=== PATIENT | female | born 1980 | race Caucasian/White ===

== ENCOUNTER 2024-01-31 15:05 | Emergency (ER) | payer OTHER, SELFPAY ==
[2024-01-31 15:08] VITALS: BP 133/91
[2024-01-31 15:29] LABS: % Basophils 0.2 % (0-2); % Immature Granulocytes 0.1 % (0-0.5); % Lymphocytes 18.6 % (20.5-51.1); % Monocytes 4.4 % (1.7-9.3); % Neutrophils 75.7 % (42.2-75.2); Absolute Eosinophils 0.1 10^3/uL (0-0.7); Absolute Lymphocytes 1.5 10^3/uL (1.2-3.4); Absolute Monocytes 0.4 10^3/uL (0.1-0.6); Absolute Neutrophils 6.1 10^3/uL (1.4-6.5); Mean Corp Hgb Conc. 35.1 g/dL (33.0-37.0); Mean Corpuscular Hgb 27.5 pg (27.0-31.0); Mean Corpuscular Volume 78.2 fL (81.0-99.0); Mean Platelet Volume 9.5 fL (7.4-10.4); Nucleated Red Blood Cells % 0 %; Platelet Count 269 10^3/uL (130-400); Red Blood Cell Count 4.73 10^6/uL (4.20-5.40); Red Cell Dist. Width 13.1 % (11.5-14.5)
[2024-01-31 15:45] LABS: ALT (SGPT) 18 U/L (0-35); AST (SGOT) 25 U/L (14-36); Alkaline Phosphatase 72 U/L (38-126); Blood Urea Nitrogen 10 mg/dl (7-17); Carbon Dioxide 25 mmol/L (22-30); Chloride 104 mmol/L (98-107); Glucose 126 mg/dl (70-99); Potassium 4.3 mmol/L (3.5-5.1); Sodium 141 mmol/L (135-145); Total Bilirubin 0.7 mg/dl (0.2-1.3); Total Protein 7.7 g/dl (6.3-8.2); eGFR > 60.00
[2024-01-31 15:50] LABS: Troponin I < 0.012 ng/ml
--- NOTE | 2024-01-31 17:15 | ED.GENMED ---
History of Present Illness
General
Chief Complaint: Eye Problems
Source: patient
Time Seen by Provider: 01/31/24 17:02
History of Present Illness
History of Present Illness:
43yoF with no significant past medical history presenting with her for evaluation of visual disturbance. Patient was in bed yesterday evening and was scrolling on her cell phone. She got up to use the bathroom and she noticed that she had a
complete loss of vision in her right eye. This lasted about a minute before resolving. Patient was seen by her eye doctor today who performed a dilated eye exam. Eye exam was normal and she was sent to the ED for concern for amaurosis fugax. Patient
is asymptomatic currently. She denies any headache, eye pain, dizziness, weakness, difficulty ambulating, chest pain.
Phy Exam
General Physical Exam
General Presentation: well appearing
General age: appears stated age
General Skin: warm and dry
General Habitus: normal
General Mental: alert
Eye Exam
Eye Exam: PERRL, EOMI and visual feliz normal
Cardiovascular Exam
Cardiovascular Exam: regular rate/rhythm
Pulmonary Exam
Pulmonary Exam: no respiratory distress
Neurological Exam
Neurological Exam: alert, CN II-XII intact and no motor deficits
NIH Stroke Score
Level of Consciousness: 0 - Alert
LOC questions: 0-Answers both correctly
LOC Commands: 0-Performs both correctly
Best Gaze: 0-Normal
Visual Feliz: 0=Normal, no visual loss
Facial palsy: 0=Normal, symmetrical
Motor - Right Arm: 0=No drift 10 seconds
Motor - Left Arm: 0=No drift 10 seconds
Motor - Right Le-No drift 5 seconds
Motor - Left Le-No drift 5 seconds
Limb Ataxia: 0-Absent
Sensation: 0-Normal
Best Language: 0-No aphasia
Dysarthria: 0-Normal
Extinction and Inattention: 0-No abnormality
Total Score:: 0
[place] Coma Scale
Eye Opening: Spontaneous
Verbal Response: Oriented
Motor Response: Obeys Commands
GCS Total Score: 15
Skin Exam
Skin Exam: normal color and warm/dry
Psychiatric Exam
Psychiatric Exam: normal mood/affect
Course
Orders/Labs/Results
Orders:
Orders
01/31/24 15:14
Electrocardiogram (*1) Urgent
Reason for Study: Other
Other Reason for Exam: vision loss
01/31/24 15:15
EKG- Treatment ONCE
01/31/24 15:20
CMP [Comprehensive Metabolic Panel] Urgent
Complete Blood Count/With Diff Urgent
HCG, Serum Qualitative Screen Urgent
Comment: ADD ON
Troponin I Urgent
01/31/24 17:30
CT Head & Neck Angio W/wo IV Urgent
Comment:
Reason For Exam: Transient loss of vision in R eye
01/31/24 17:35
Add On- LAB Urgent
Tests Added?: hcg qual
Abnormal Lab Results
01/31/24
15:20
MCV 78.2 L fL
(81.0-99.0)
Neutrophils % 75.7 H %
(42.2-75.2)
Lymphocytes % 18.6 L %
(20.5-51.1)
Glucose 126 H mg/dl
(70-99)
01/31/24 15:20
01/31/24 15:20
Vital Signs
Initial and Last Documented VS:
Initial Vital Signs
Temp Pulse Resp BP Pulse Ox
98.5 F 92 18 133/91 100
01/31/24 15:08 01/31/24 15:08 01/31/24 15:08 01/31/24 15:08 01/31/24 15:08
Last Documented Vital Signs
Temp Pulse Resp BP Pulse Ox
98.5 F 92 18 133/91 100
01/31/24 15:08 01/31/24 15:08 01/31/24 15:08 01/31/24 15:08 01/31/24 15:08
MDM/Problems Addressed
Differential Diagnosis Includes:
43yoF presenting for transient R eye vision loss yesterday lasting 1 minute. Currently asymptomatic. Seen by eye doctor today and had a normal exam. Vitals are stable. Neuro exam is non-focal. NIHSS 0. Differential diagnosis includes but is not
limited to: TIA, carotid occlusion, exhaustion
Initial ED plan: Check cardiac labs, EKG, and CTA head/neck. Will discuss with neurology.
*EKG
Interpreted by ED Provider?: Yes
EKG Intrepretation Date: 01/31/24
Heart Rate: 90
Rate: normal
Rhythm: sinus
[place]: normal axis
Interval: normal interval
QRS Pattern: normal QRS
Ischemia: no ischemia
*Critical Care Note
Total Time (30-74mins, 75-104mins- exclusive of procedures): Not Applicable
Update Note
Update Note:
Labs overall unremarkable. EKG shows normal sinus rhythm without ischemic changes and troponin is normal. CTA head/neck is negative for acute findings. There is no significant vascular occlusion noted. Patient was evaluated by neurologist,
Jason. Neurology recommending discharge if CTA is negative. Recommendations discussed with patient. Advised close PCP f/u and ED return precautions discussed. She was discharged in stable condition.
ED Attending Note
-
Portions of this chart may have been created with voice recognition software.� Occasional wrong word or��sound alike� substitutions may have occurred due to the inherent limitations of voice recognition software.
Discharge Plan
Departure
Patient Disposition: Home (Routine Discharge)
Date of Disposition: 01/31/24
Time of Disposition: 19:50
Patient with high blood pressure during this ER visit?: No
Discharge Problem:
Transient visual loss of right eye
Instructions: Eyestrain
Referrals:
Beatriz Mart MD [Family Provider] -
Activity Restrictions/Additional Instructions:
Please follow-up with your family doctor. Return to the ER with any new or worsening symptoms.
Interventions
Interventions:
*Risk Screen - Suicide Last Done: 01/31/24 17:41
*General Assessment Last Done: 01/31/24 17:41
*Neglect/Abuse Screening Last Done: 01/31/24 17:41
Discharge Date and Time
Print Language: UPPER SORBIAN
[2024-01-31 17:40] VITALS: BMI 25.8
[2024-01-31 17:51] LABS: HCG, Serum Qualitative Screen Negative
== END 2024-02-06 12:53 | disposition home or self-care (01) ==
LOC: EMR 15:05
PROVIDERS: Emergency Medicine; EMERGENCY PHYSICIAN Student in an Organized Health Care Education/Training Program; FAMILY PHYSICIAN Internal Medicine
DX: H54.61 Unqualified visual loss, right eye, normal vision left eye (principal)
CPT/HCPCS: 99285; 70496; 70498; 80053; 84484; 84703; 85025; 93005; Q9967

== ENCOUNTER → 2024-04-08 13:23 | Outpatient (REF) | payer OTHER, SELFPAY | LOC: HWRAD 13:23 | PROVIDERS: ATTENDING PHYSICIAN Internal Medicine | DX: M25.561 Pain in right knee (principal); M25.562 Pain in left knee; M79.674 Pain in right toe(s) | CPT/HCPCS: 73564; 73630 ==

== ENCOUNTER → 2024-04-29 13:26 | Outpatient (REF) | payer OTHER, SELFPAY | LOC: HWRAD 13:26 | PROVIDERS: ATTENDING PHYSICIAN Podiatrist; FAMILY PHYSICIAN Internal Medicine | DX: M84.48XA Pathological fracture, other site, initial encounter for fracture (principal); S92.309A Fracture of unspecified metatarsal bone(s), unspecified foot, initial encounter for closed fracture | CPT/HCPCS: 73630; 73700 ==